=== PATIENT | female | born 1995 | race Caucasian/White ===

== ENCOUNTER 2017-10-16 17:47 | Emergency (ER) | payer SELFPAY ==
[~2017-10-16] VITALS: Ht 165.1 cm; Wt 70.0 kg
[2017-10-16] MEDS ORDERED: MORPHINE SULFATE 4 MG/ML CPJ (NOT FOR IM USE) IV ONE (19:00)
[2017-10-16] MEDS ORDERED: KETOROLAC 30MG/ML VIAL IV ONE (20:45)
[2017-10-16] MEDS ORDERED: MORPHINE SULFATE 2 MG/ML CPJ (NOT FOR IM USE) IV ONE (21:00)
[2017-10-16] MEDS ORDERED: LORAZEPAM 2MG/ML CPJ IV ONE (21:00)
[2017-10-16 22:09] LABS: HEMOGLOBIN. 13.1 g/dL (12.0-16.0); MEAN CORPUSCULAR HEMOGLOBIN 28.2 pg (28.0-32.0); MEAN CORPUSCULAR VOLUME 85.7 fL (81.0-99.0); MEAN PLATELET VOLUME 7.2 fl (7.4-10.4); PLATELET 277 x1000/uL (130-400); RED BLOOD CELL COUNT 4.67 mill/uL (4.2-5.4); RED CELL DISTRIBUTION WIDTH 13.4 % (11.6-14.6)
[2017-10-16 22:57] LABS: PLATELET ESTIMATE NORMAL
[2017-10-16 23:45] VITALS: BP 114/67
== END 2017-10-17 00:10 | disposition home or self-care (01) ==
LOC: ER 17:55
DX: S63.114A Dislocation of metacarpophalangeal joint of right thumb, initial encounter (principal); S82.62XA Displaced fracture of lateral malleolus of left fibula, initial encounter for closed fracture; F41.9 Anxiety disorder, unspecified; F17.200 Nicotine dependence, unspecified, uncomplicated; V49.9XXA Car occupant (driver) (passenger) injured in unspecified traffic accident, initial encounter; Y93.89 Activity, other specified; Y92.89 Other specified places as the place of occurrence of the external cause; Y99.8 Other external cause status
CPT/HCPCS: 26700; 36415; 72110; 73120; 73590; 85025; 96374; 96375; 96376; 99285; J1885; J2060; J2270; Z7610